=== PATIENT | male | born 1980 | race Two or more races ===

== ENCOUNTER 2017-11-30 08:47 | Emergency (ER) | payer SELFPAY ==
[~2017-11-30] VITALS: Ht 190.5 cm; Wt 115.7 kg
[2017-11-30 09:04] VITALS: BP 149/88
[2017-11-30] MEDS ORDERED: cefTRIAXone SOD 1,000 MG VL IM ONE (10:00)
[2017-11-30] MEDS ORDERED: methylPREDNISolone SOD SUCC 125 MG/2 ML VL IM ONE (10:00)
== END 2017-11-30 12:02 | disposition home or self-care (01) ==
LOC: ER 08:47
DX: L03.116 Cellulitis of left lower limb (principal); L03.115 Cellulitis of right lower limb
CPT/HCPCS: 96372; 99284; J0696; J2930

== ENCOUNTER 2021-04-24 14:37 | Emergency (ER) | payer OTHER | END 2021-04-24 15:12 | disposition left against medical advice (07) | LOC: ER 14:38 | DX: R05.9 Cough, unspecified (principal); Z53.21 Procedure and treatment not carried out due to patient leaving prior to being seen by health care provider ==

== ENCOUNTER 2022-03-16 17:09 | Emergency (ER) | payer OTHER ==
[2022-03-17] MEDS ORDERED: HYDR-4902 PO (10:42)
[2022-03-17] MEDS ORDERED: IBUP800T26 PO (10:42)
== END 2022-03-16 18:43 | disposition left against medical advice (07) ==
LOC: ER 17:09
DX: M79.89 Other specified soft tissue disorders (principal); Z53.21 Procedure and treatment not carried out due to patient leaving prior to being seen by health care provider

== ENCOUNTER 2022-03-17 07:29 | Emergency (ER) | payer OTHER ==
[~2022-03-17] VITALS: Ht 190.5 cm; Wt 128.0 kg
[2022-03-17 08:17] VITALS: BP 149/87
[2022-03-17 09:17] LABS: Basophils # (auto) 0.1 10 ^3/uL (0-0.2); Eosinophils # (auto) 0.1 10 ^3/uL (0-0.8); Hemoglobin 16.6 g/dL (13.5-17.5); Neutrophils # (auto) 5.7 10 ^3/uL (1.6-8.6)
[2022-03-17 09:18] LABS: Basophils % (auto) 0.7 % (0.0-2.0); Eosinophils % (auto) 1.7 % (0.0-7.0); Hematocrit 50.5 % (41.0-53.0); Lymphocytes # (auto) 1.7 10 ^3/uL (0.4-5.4); Mean Corpuscular Hemoglobin 26.9 pg (28.0-32.0); Mean Corpuscular Hgb Conc. 32.9 g/dL (32.0-36.0); Mean Corpuscular Volume 81.7 fL (80.0-100.0); Monocytes # (auto) 0.6 10 ^3/uL (0-1.3); Neutrophils % (auto) 69.6 % (37.0-80.0); Red Blood Cells 6.18 10^6/uL (4.5-5.90); White Blood Cell 8.1 10^3/uL (4.4-10.8)
[2022-03-17 09:46] LABS: Albumin 3.8 g/dL (3.4-5.0); BUN/Creatinine Ratio 19.8; Bilirubin, Total 0.8 mg/dL (0.2-1.0); Calcium 9.1 mg/dL (8.5-10.1); Potassium 4.2 mmol/L (3.5-5.1); Total Protein 7.4 g/dL (6.4-8.2)
[2022-03-17] MEDS ORDERED: IBUP800T26 PO (10:42)
[2022-03-17] MEDS ORDERED: HYDR-4902 PO (10:42)
[2022-03-17] MEDS ORDERED: KETOROLAC TROMETH 60MG/2ML VIAL IM ONE (10:45)
== END 2022-03-17 10:43 | disposition home or self-care (01) ==
LOC: ER 07:29
DX: I83.93 Asymptomatic varicose veins of bilateral lower extremities (principal)
CPT/HCPCS: 36415; 80053; 85025; 93971; 96372; 99284; J1885

== ENCOUNTER 2023-01-31 19:40 | Emergency (ER) | payer OTHER ==
[~2023-01-31] VITALS: Ht 182.9 cm; Wt 127.0 kg
[~2023-01-31 19:40] MED LIST: HYDR-4902 PO; IBUP-1455 PO
[2023-01-31] MEDS ORDERED: MIDAZOLAM HCL 5 MG/ML-1ML VIAL IV ONE (19:45)
[2023-01-31] MEDS ORDERED: fentaNYL CITRATE 100 MCG/2 ML VL IV ONE (19:45)
[2023-01-31 20:27] LABS: Basophils # (auto) 0.1 10 ^3/uL (0-0.2); Eosinophils # (auto) 0.1 10 ^3/uL (0-0.8); Eosinophils % (auto) 0.9 % (0.0-7.0); Hemoglobin 16.6 g/dL (13.5-17.5); Monocytes # (auto) 0.4 10 ^3/uL (0-1.3)
[2023-01-31 20:29] LABS: Basophils % (auto) 0.7 % (0.0-2.0); Hematocrit 49.4 % (41.0-53.0); Lymphocytes % (auto) 24.1 % (10.0-50.0); Mean Corpuscular Hemoglobin 27.6 pg (28.0-32.0); Mean Corpuscular Hgb Conc. 33.6 g/dL (32.0-36.0); Mean Corpuscular Volume 81.9 fL (80.0-100.0); Monocytes % (auto) 4.7 % (0.0-12.0); Neutrophils # (auto) 5.8 10 ^3/uL (1.6-8.6); Neutrophils % (auto) 69.6 % (37.0-80.0); Nucleated Red Blood Cells % 0.3 %; Red Blood Cells 6.03 10^6/uL (4.5-5.90); Red Cell Distribution Width 13.2 % (11.8-14.3); White Blood Cell 8.3 10^3/uL (4.4-10.8)
[2023-01-31 20:55] LABS: Alanine Aminotransferase 31 U/L (7-40); Albumin 4.8 g/dL (3.2-4.8); Alkaline Phosphatase 87 U/L (46-116); Anion Gap 11 (5-15); Aspartate Aminotransferase 18 U/L (13-40); BUN/Creatinine Ratio 10.1 (10.0-20.0); Bilirubin, Total 0.4 mg/dL (0.2-1.0); Blood Urea Nitrogen 9 mg/dL (9-23); Calcium 9.3 mg/dL (8.7-10.4); Carbon Dioxide 22 mmol/L (20-30); Chloride 104 mmol/L (98-107); Glucose 158 mg/dL (74-106); Potassium 4.1 mmol/L (3.5-5.1); Sodium 137 mmol/L (136-145); Total Protein 7.3 g/dL (5.7-8.2)
[2023-01-31] MEDS ORDERED: ceFAZolin 2 GM/D5W100ml 100 ML IV ONE (21:00)
[2023-01-31] MEDS ORDERED: TETANUS-DIPTH-ACEL PERTUSSIS 0.5ML SYR Tdap IM ONE (21:00)
[2023-01-31] MEDS ORDERED: ceFAZolin 1GM/50ML 100 ML IV ONE (21:17)
[2023-01-31] MEDS ORDERED: LORazepam 2MG/ML-1ML VIAL ONE (21:22)
[2023-01-31] MEDS: LORazepam 2MG/ML-1ML VIAL IV ONE ×2 (21:25→21:52)
[2023-01-31 21:42] LABS: Acetaminophen < 2.0 UG/ML (10.0-20.0)
[2023-01-31 21:43] LABS: Salicylate < 3.0 mg/dL (2.8-20.0)
[2023-01-31] MEDS ORDERED: HALOPERIDOL LACTATE 5 MG/ML INJ VIAL IM ONE (22:15)
[2023-01-31] MEDS ORDERED: diphenhdrAMINE HCL 50 MG/1 ML VL IV ONE (22:15)
[2023-01-31 22:56] VITALS: BP 109/72; PULSE 89; RESP 19; TEMP 98; O2SAT 93
[2023-01-31] MEDS ORDERED: levETIRAcetam 500 MG/5ML INJ IV ONE (23:18)
== END 2023-01-31 23:45 | disposition short-term general hospital (02) ==
LOC: ER 19:40
DX: S01.83XA Puncture wound without foreign body of other part of head, initial encounter (principal); S06.6XAA Traumatic subarachnoid hemorrhage with loss of consciousness status unknown, initial encounter; F10.129 Alcohol abuse with intoxication, unspecified; R45.1 Restlessness and agitation; R45.6 Violent behavior; R73.9 Hyperglycemia, unspecified; F32.A Depression, unspecified; I10 Essential (primary) hypertension; Z79.1 Long term (current) use of non-steroidal anti-inflammatories (NSAID); Z79.899 Other long term (current) drug therapy; Y93.89 Activity, other specified; Y92.89 Other specified places as the place of occurrence of the external cause; Y99.8 Other external cause status; Y90.8 Blood alcohol level of 240 mg/100 ml or more
CPT/HCPCS: 36415; 70450; 80053; 80320; 80329; 85025; 96365; 96372; 96375; 99285; J0690; J1200; J1630; J1953; J2060; J2250; J3010; J7060

== ENCOUNTER 2024-05-27 19:58 | Emergency (ER) | payer OTHER ==
[~2024-05-27] VITALS: Ht 188 cm; Wt 127.2 kg
[2024-05-27 20:05] VITALS: BP 131/75; RESP 24; O2SAT 100
[2024-05-27 20:09] VITALS: PULSE 83
[2024-05-27] MEDS ORDERED: ALBUTEROL SULF 2.5 MG/0.5ML(0.5%) NEB SOLN NEB ONE (20:15)
[2024-05-27] MEDS ORDERED: DexAMETHasone SOD PHOS 10MG/1ML VIAL INJ IM ONE (20:15)
[2024-05-27] MEDS ORDERED: IPRATROPIUM BROM 0.5 MG/2.5ML INH SOL NEB ONE (20:15)
--- NOTE | 2024-05-27 20:47 | ED.PDOC ---
History of Present Illness HPI Comments 43M presents to the ER w/ prior Hx of HTN which may be associated to the c/c of CP. Pt reports on having substernal CP which radiated to the left and also has SOB. Denies chills, fever, N/V/D, SOB or other associated symptom's, modifiers, or recent injuries or sick contact at this time. Vital signs were stable on arrival. Chief Complaint: Chest Pain Time Seen by MD: 20:30 Primary Care Provider: NONE Reviewed Notes: Nurses Notes, Medications, Allergies Allergies: Coded Allergies: No Known Drug Allergy (Verified Allergy, Unknown, 11/30/17) Home Meds Active Scripts Hydrocodone-Acetaminophen (Hydrocodone Bitartrate/AC 5-325 mg) 1 Tab Tab, 1 TAB PO QIDP, #15 TAB Prov:BARAK CARRION PAC 03/17/22 Ibuprofen Micronized (Ibuprofen) 800 Mg Tab, 800 MG PO TID, #30 TAB Prov:BARAK CARRION PAC 03/17/22 Information Source: Patient Mode of Arrival: Ambulatory Severity: Moderate Timing: Hours Duration: Since onset, Hours Prehospital treatment: None Past Medical History PAST MEDICAL HISTORY: HTN Surgical History: Denies all surgeries Family History Family History: Reviewed,noncontributory to illness, Unknown Social History Smoker: Non-Smoker Alcohol: Denies ETOH Use Drugs: Denies Drug Use Lives In: Home Constitutional: denies: chills, diaphoresis, fatigue, fever, malaise, sweats, weakness, others EENTM: denies: blurred vision, double vision, ear bleeding, ear discharge, ear drainage, ear pain, ear ringing, eye pain, eye redness, hearing loss, mouth pain, mouth swelling, nasal discharge, nose bleeding, nose congestion, nose pain, photophobia, tearing, throat pain, throat swelling, voice changes, others Respiratory: reports: shortness of breath; denies: cough, hemoptysis, orthopnea, SOB at rest, SOB with excertion, stridor, wheezing, others Cardiovascular: reports: chest pain; denies: dizzy spells, diaphoresis, Dyspnea on exertion, edema, irregular heart beat, left arm pain, lightheadedness, palpitations, PND, syncope, others Gastrointestinal: denies: abdomen distended, abdominal pain, blood streaked bowels, constipated, diarrhea, dysphagia, difficulty swallowing, hematemesis, melena, nausea, poor appetite, poor fluid intake, rectal bleeding, rectal pain, vomiting, others Genitourinary: denies: burning, dysuria, flank pain, frequency, hematuria, incontinence, penile discharge, penile sore, pain, testicle pain, testicle swelling, urgency, others Neurological: denies: dizziness, fainting, headache, left sided numbness, left sided weakness, numbness, paresthesia, pre-existing deficit, right sided numbness, right sided weakness, seizure, speech problems, tingling, tremors, weakness, others Musculoskeletal: denies: back pain, gout, joint pain, joint swelling, muscle pain, muscle stiffness, neck pain, others Integumetry: denies: bruises, change in color, change in hair/nails, dryness, laceration, lesions, lumps, rash, wounds, others Allergic/Immunocompromised: denies: Difficulty Healing, Frequent Infections, Hives, Itching, others Hematologic/Lymphatic: denies: anemia, blood clots, easy bleeding, easy bruising, swollen glands, others Endocrine: denies: excessive hunger, excessive sweating, excessive thirst, excessive urination, flushing, intolerance to cold, intolerance to heat, unexplained weight gain, unexplained weight loss, others Psychiatric: denies: anxiety, bipolar disorder, depression, hopeless, panic disorder, schizophrenia, sleepless, suicidal, others All Other Systems: Reviewed and Negative Physical Exam General Appearance: Mild Distress (Moderate distress at time of evaluation.), Obese HEENT: Normal ENT Inspection, Pharynx Normal, TMs Normal Neck: Full Range of Motion, Non-Tender, Normal, Normal Inspection Respiratory: Chest Non-Tender, Lungs Clear, No Accessory Muscle Use, No Respiratory Distress, Normal Breath Sounds, Other (Lungs clear to auscultation bilaterally. Unremarkable auscultation bilateral lung chua.) Cardiovascular: No Edema, No JVD, No Murmur, No Gallop, Normal Peripheral Pulses, Regular Rate/Rhythm Breast Exam: Deferred Gastrointestinal: No Organomegaly, Non Tender, No Pulsatile Mass, Normal Bowel Sounds, Soft Genitalia: Deferred Pelvic: Deferred Rectal: Deferred Extremities: No calf tenderness, Normal capillary refill, Normal inspection, Normal range of motion, Non-tender, No pedal edema Musculoskeletal : Apperance: Normal Neurologic: Alert, No Motor Deficits, Normal Affect, Normal Mood, No Sensory Deficits Cerebellar Function: Normal Reflexes: Normal Skin: Dry, Normal Color, Warm Lymphatic: No Adenopathy Was a procedure done? Was a procedure done?: No Differential Dx Considerations may include: Acute CA, CHF, pneumonia, bronchitis, viral upper respiratory illness X-Ray, Labs, Meds, VS Vital Signs Date Time Temp Pulse Resp B/P (MAP) Pulse Ox O2 Delivery O2 Flow Rate FiO2 05/27/24 20:09 83 05/27/24 20:05 97.4 85 24 131/75 (93) 100 Lab Test 05/27/24 20:11 Range/Units Troponin I High Sensitivity < 3 L </=54 ng/L X-Ray, Labs, Meds, VS Comment Nursing and radiology attempted to locate the patient multiple times for treatment and studies, but the patient appears to have eloped from the facility. Time of 1ST Reevaluation: 22:48 Reevaluation 1ST: Unchanged Consultation: PCP Patient Education/Counseling: Diagnosis, Treatment, Prognosis Family Education/Counseling: Diagnosis, Treatment, No Family Present Departure 1 Departure Time of Disposition: 22:49 Impression: Primary Impression: Chest pain Disposition: 07 LEFT AWOL/ELOPED Condition: Fair Discharged With: Self Critical Care Note Critical Care Time?: No Stability Stability form required: No Heart Score Heart Score: Heart Score Response (Comments) Value History Slightly Suspicious 0 EKG Repolarization Disturb 1 Age <45 0 Risk Factors 1 or 2 risk factors 1 Troponin Normal limit 0 Total 2 I personally scribed for BARAK CARRION PAC ([email or web address]) on 05/27/24 at 20:47. Electronically submitted by Joshua Juarez ([email or web address]). BARAK CARRION PAC May 27, 2024 20:47
--- NOTE | 2024-05-28 07:22 | ECG ---
[facility] Test Date: 2024-05-27 Test Time: 20:02:24 Pat Name: ROSSY OLEA Department: ER Room: Gender: M [employer] Operator: JAME : [id number] Requested By: BARAK CARRION Order Number: [id number] Reading MD: Dillon Tobar Measurements Intervals [place] Rate: 83 P: 68 RI: 169 QRS: 38 QRSD: 106 T: 7 QT: 365 QTc: 429 Interpretive Statements Sinus rhythm Abnormal R-wave progression, early transition Baseline wander in lead(s) V2 Electronically Signed On 05-28-2024 14:45:56 PST by Dillon Tobar Please click the below link to view image of tracing.
== END 2024-05-27 20:58 | disposition left against medical advice (07) ==
LOC: ER 19:58
DX: R07.89 Other chest pain (principal); R06.02 Shortness of breath; I10 Essential (primary) hypertension
CPT/HCPCS: 36415; 84484; 93005